=== PATIENT | female | born 1995 | race Caucasian/White ===

== ENCOUNTER → 2017-04-26 | Outpatient (CLI) | payer BC ==
--- NOTE | 2017-04-26 21:55 | XR ---
EXAMINATION TYPE: 2 views left clavicle. 3 views left shoulder DATE OF EXAM: 04/26/2017 COMPARISON: NONE HISTORY: 21-year-old female left shoulder injury and upper arm pain FINDINGS: Left clavicle: There is capsular swelling of the AC joint. No abnormal joint osteophyte. There is some vague calcifi cation or ossification along the inferior aspect of the distal clavicle. No clavicular shaft fracture . Left shoulder: Subacromial space is preserved. No acute fracture, subluxation, or dislocation. Visualized left hemit horax is clear. IMPRESSION: 1. Some calcification or ossification along the inferior aspect of the distal clavicle/AC joint. The etiology is unclear. This could represent some soft tissue calcification relating to a prior capsular sprain, resorptive changes involving a subtle marginal fracture from the distal clavicle, or calcifi c capsulitis. 2. Otherwise, left clavicle and shoulder without acute osseous abnormality seen.
== END ==
LOC: RADXRMAIN 15:52
PROVIDERS: ATTEND Family Medicine
DX: S49.92XA Unspecified injury of left shoulder and upper arm, initial encounter (principal)